=== PATIENT | female | born 1960 | race African-American/Black ===

== ENCOUNTER 2025-04-14 06:20 | Day surgery (SDC) | payer MEDICARE, MEDICAID ==
[2025-04-13 12:25] VITALS: BMI 22.6
[2025-04-14] MEDS ORDERED: PROPOFOL 40 ML ONE (08:26)
[2025-04-14] MEDS ORDERED: PROPOFOL 20 ML ONE (08:37)
== END 2025-04-14 09:38 | disposition home or self-care (01) ==
LOC: SDC 06:20
PROVIDERS: ATTEND Internal Medicine
PROC: 0DBP8ZZ Excision of Rectum, Via Natural or Artificial Opening Endoscopic (ICD-10-PCS; principal; 2025-04-14)
DX: Z12.11 Encounter for screening for malignant neoplasm of colon (principal); K51.40 Inflammatory polyps of colon without complications; K62.1 Rectal polyp; Z80.0 Family history of malignant neoplasm of digestive organs; K59.09 Other constipation
CPT/HCPCS: 45385; J2704; 88305